=== PATIENT | male | born 1990 | race Caucasian/White ===

== ENCOUNTER 2018-02-04 16:38 | Emergency (ER) | payer OTHER ==
--- NOTE | 2018-02-04 17:16 | ER Report ---
History and Physical Time Seen By MD: 17:16 Hx. of Stated Complaint: PT PRESENTS WITH SOB INTERMITTANTLY FOR A WEEK, , PT IS NON SMOKER, NO RESP ISSUES IN PAST HPI/ROS CHIEF COMPLAINT: Shortness of breath HISTORY OF PRESENT ILLNESS: This is a 28-year-old male who presents to the emergency department for intermittent shortness of breath and chest pressure for about one week. Patient states that roughly 1 week ago he had intermittent chest pressure with some increased shortness of breath, then over the last 2 days he's had pretty constant shortness of breath. Was seen and evaluated at [facility] today, they were concerned for a DVT signs currently sent him to the ED for further evaluation. Patient has a family history of blood clots, his father had clots and heart attack. Patient denies fevers or chills. No nausea or vomiting. Otherwise healthy. The patient was also in [place] over this past weekend however his shortness of breath did start prior to his flight. REVIEW OF SYSTEMS: Constitutional: No fever, no chills. Eyes: No discharge. ENT: No sore throat. Cardiovascular: No chest pain, no palpitations. Respiratory: As above. Gastrointestinal: No abdominal pain, no vomiting. Genitourinary: No hematuria. Musculoskeletal: No back pain. Skin: No rashes. Neurological: No headache. Allergies: Coded Allergies: No Known Drug Allergies (Unverified , 02/04/18) Home Meds Active Scripts Albuterol Sulfate 90 Mcg/Act (PROAIR HFA 90 MCG/ACT) 8.5 Gm Hfa.aer.ad, 1-2 PUFF IH 3-4XD, #1 INHALER Prov:YAZMIN WILLIS UPHOLSTERY CUTTER- 02/04/18 Past Medical/Surgical History The patient has a past medical and surgical history of wisdom teeth extraction and seasonal allergies. Reviewed Nurses Notes: Yes Hx Substance Use Disorder: No Hx Alcohol Use: Yes (OCC) Constitutional Vital Sign - Last 24 Hours 02/04/18 02/04/18 02/04/18 02/04/18 16:49 16:51 17:00 17:08 Temp 98.1 Pulse 68 62 Resp 20 B/P (MAP) 150/93 (112) 150/93 138/90 (106) Pulse Ox 99 96 O2 Delivery Room Air 02/04/18 02/04/18 02/04/186/18 17:30 17:38 18:00 18:30 Pulse 56 B/P (MAP) 133/83 (100) 142/90 (107) 137/80 (99) Pulse Ox 94 02/04/18 02/04/18 02/04/18 02/04/18 18:35 19:00 19:05 19:20 Pulse 69 56 56 B/P (MAP) 142/94 (110) Pulse Ox 99 99 96 02/04/18 02/04/18 02/04/18 02/04/18 19:30 19:35 19:42 19:42 Pulse 66 56 Resp 12 B/P (MAP) 137/93 (108) Pulse Ox 94 98 O2 Delivery Room Air 02/04/18 02/04/18 02/04/18 02/04/18 19:50 19:50 20:00 20:05 Pulse 59 58 65 Resp 12 B/P (MAP) 132/81 (98) Pulse Ox 100 97 Physical Exam General Appearance: The patient is alert, has no immediate need for airway protection and no signs of toxicity. Eyes: Pupils equal and round no pallor or injection. ENT, Mouth: Mucous membranes are moist. Respiratory: There are no retractions, lungs are clear to auscultation. Cardiovascular: Regular rate and rhythm, no murmurs, clicks or rubs. Gastrointestinal: Abdomen is soft and non tender, no masses, bowel sounds normal. Neurological: Alert and oriented 4. Moving all extraneous. Following all commands. No focal neuro deficits. Skin: Warm and dry, no rashes. Musculoskeletal: Neck is supple non tender. Extremities are nontender, nonswollen and have full range of motion. DIFFERENTIAL DIAGNOSIS: After history and physical exam differential diagnosis was considered for shortness of breath including but not limited to pulmonary infectious process, COPD, asthma, pulmonary embolus and congestive heart failure. Medical Decision Making Data Points Result Diagram: 02/04/18 1800 02/04/18 1800 Laboratory Hematology Test 02/04/18 18:00 Red Blood Count 5.35 M/uL (4.00-5.60) Mean Corpuscular Volume 88.8 fL (80.0-96.0) Mean Corpuscular Hemoglobin 31.4 pg (26.0-33.0) Mean Corpuscular Hemoglobin Concent 35.3 g/dL (32.0-36.0) Red Cell Distribution Width 12.2 % (11.5-14.5) Mean Platelet Volume 6.9 fL (7.2-11.1) Neutrophils (%) (Auto) 51.9 % (39.4-72.5) Lymphocytes (%) (Auto) 35.5 % (17.6-49.6) Monocytes (%) (Auto) 11.0 % (4.1-12.4) Eosinophils (%) (Auto) 1.0 % (0.4-6.7) Basophils (%) (Auto) 0.6 % (0.3-1.4) Nucleated RBC Relative Count (auto) 0.1 /100WBC Neutrophils # (Auto) 2.1 K/uL (2.0-7.4) Lymphocytes # (Auto) 1.4 K/uL (1.3-3.6) Monocytes # (Auto) 0.4 K/uL (0.3-1.0) Eosinophils # (Auto) 0.0 K/uL (0.0-0.5) Basophils # (Auto) 0.0 K/uL (0.0-0.1) Nucleated RBC Absolute Count (auto) 0.00 K/uL D-Dimer Quantitative (PE/DVT) 2.08 ug/ml (0-0.50) Sodium Level 139 mmol/L (137-145) Potassium Level 3.9 mmol/L (3.5-5.0) Chloride Level 102 mmol/L (98-107) Carbon Dioxide Level 28 mmol/L (22-30) Blood Urea Nitrogen 17 mg/dl (9-21) Creatinine 0.90 mg/dl (0.66-1.25) Glomerular Filtration Rate Calc > 60.0 Random Glucose 92 mg/dl (75-110) Calcium Level 9.6 mg/dl (8.4-10.2) Total Bilirubin 0.5 mg/dl (0.2-1.3) Aspartate Amino Transf (AST/SGOT) 25 U/L (0-35) Alanine Aminotransferase (ALT/SGPT) 31 U/L (0-56) Alkaline Phosphatase 58 U/L (0-126) Troponin I < 0.012 ng/ml Total Protein 7.9 g/dl (6.3-8.2) Albumin 4.5 g/dl (3.5-5.0) Chemistry Test 02/04/18 18:00 White Blood Count 4.0 k/uL (4.5-11.0) Red Blood Count 5.35 M/uL (4.00-5.60) Hemoglobin 16.8 g/dL (14.0-18.0) Hematocrit 47.5 % (42.0-52.0) Mean Corpuscular Volume 88.8 fL (80.0-96.0) Mean Corpuscular Hemoglobin 31.4 pg (26.0-33.0) Mean Corpuscular Hemoglobin Concent 35.3 g/dL (32.0-36.0) Red Cell Distribution Width 12.2 % (11.5-14.5) Platelet Count 229 K/uL (150-450) Mean Platelet Volume 6.9 fL (7.2-11.1) Neutrophils (%) (Auto) 51.9 % (39.4-72.5) Lymphocytes (%) (Auto) 35.5 % (17.6-49.6) Monocytes (%) (Auto) 11.0 % (4.1-12.4) Eosinophils (%) (Auto) 1.0 % (0.4-6.7) Basophils (%) (Auto) 0.6 % (0.3-1.4) Nucleated RBC Relative Count (auto) 0.1 /100WBC Neutrophils # (Auto) 2.1 K/uL (2.0-7.4) Lymphocytes # (Auto) 1.4 K/uL (1.3-3.6) Monocytes # (Auto) 0.4 K/uL (0.3-1.0) Eosinophils # (Auto) 0.0 K/uL (0.0-0.5) Basophils # (Auto) 0.0 K/uL (0.0-0.1) Nucleated RBC Absolute Count (auto) 0.00 K/uL D-Dimer Quantitative (PE/DVT) 2.08 ug/ml (0-0.50) Glomerular Filtration Rate Calc > 60.0 Calcium Level 9.6 mg/dl (8.4-10.2) Total Bilirubin 0.5 mg/dl (0.2-1.3) Aspartate Amino Transf (AST/SGOT) 25 U/L (0-35) Alanine Aminotransferase (ALT/SGPT) 31 U/L (0-56) Alkaline Phosphatase 58 U/L (0-126) Troponin I < 0.012 ng/ml Total Protein 7.9 g/dl (6.3-8.2) Albumin 4.5 g/dl (3.5-5.0) Coagulation Test 02/04/18 18:00 D-Dimer Quantitative (PE/DVT) 2.08 ug/ml EKG/Imaging EKG Interpretation 12 lead EKG: EKG 1729. Rhythm: Sinus bradycardia, ventricular rate 52 bpm. [place]: normal QRS: normal ST segments: No ST depression or elevation identified, there are peaked T waves in V3, V4 and V5. [place] [facility] [place] [place] Puga : 1990 Visit/Account:[id number] Date of Sevice: 02/04/2018 CTA CHEST WW/O CNTR (PULM ANG) COMPARISONS: None. ADDITIONAL PERTINENT HISTORY: Shortness of breath with elevated d-dimer. TECHNIQUE: Multiple axial images are obtained from the lung apices through the upper abdomen during the IV administration of contrast material. 2-D and 3-D reformatted images were obtained off the axial source data. One of the following dose optimization techniques was utilized in the performance of this exam: Automated exposure control; adjustment of the mA and/or kV according to the patient's size; or use of an iterative reconstruction technique. Specific details can be referenced in the facility's radiology CT exam operational polic y. CONTRAST: 75mL of Isovue-370 FINDINGS: Lung parenchyma: Negative. Pleural spaces: Negative. Heart, mediastinum and masoud: Negative. Cardiopulmonary vasculature: Pulmonary arterial structures are well opacified with contrast material and demonstrate no evidence of underlying pulmonary e mboli. Central airways: Negative Thyroid, supra- clavicular, axillary regions: Negative. Surrounding soft tissues: Negative. Upper abdominal structures: Negative. Osseous structures: Negative. IMPRESSION: 1. No acute intrathoracic process. 2. Specifically no evidence of underlying pulmonary emboli. Report Dictated By: Chang Yañez MD at 02/04/2018 7:21 PM Report E-Signed By: Chang Yañez MD at 02/04/2018 7:26 PM WSN:[id number] ED Course/Re-evaluation Clinical Indication for ER IV: Hydration, IV Access ED Course The patient was admitted to room. A history and physical were obtained. Differential diagnoses were considered. An IV was started. A CBC, CMP and d- dimer were obtained. D-dimer was elevated. Patient was given a 1 L normal saline bolus. A CTA of the chest was negative for a pulmonary embolus, no infectious process. I did review these results with the patient. I did tell him I don't have a clear explanation as to why he is having his shortness of breath however could be secondary to seasonal allergies, reactive airway or a viral process. Patient was given a DuoNeb while in the emergency department, he states he did feel better after the treatment. I did send the patient home with a prescription for an albuterol inhaler. I did recommend following up with [facility] next 2 days for reevaluation as well as a discussion about a pulmonary function test. Patient expressed understanding time and was discharged home. Decision to Disposition Date: Feb 04, 2018 Decision to Disposition Time: 20:03 Depart Departure Latest Vital Signs Vital Signs Date Time Temp Pulse Resp B/P (MAP) Pulse Ox O2 Delivery O2 Flow Rate FiO2 02/04/18 20:05 65 97 02/04/18 20:00 132/81 (98) 02/04/18 19:50 12 02/04/18 19:42 Room Air 02/04/18 16:51 98.1 Impression: Primary Impression: Shortness of breath Condition: Improved Disposition: HOME OR SELF-CARE Referrals: [facility] 2 Days New Scripts Albuterol Sulfate 90 Mcg/Act (PROAIR HFA 90 MCG/ACT) 8.5 Gm Hfa.aer.ad 1-2 PUFF IH 3-4XD, #1 INHALER Prov: YAZMIN WILLIS UPHOLSTERY CUTTER-BC 02/04/18 Patient Instructions: Dyspnea (ED) Additional Instructions: The CT did no show any evidence of a blood clot in your lungs. Your lab work and EKG do not show anything concerning today. I am unsure what is causing the shortness of breath, it could be reactive airway, viral illness or seasonal allergies that are contributing to your symptoms. I would like you to follow up with [facility] in 2 days for reevaluation, I would also like for you to discuss with them the possibility of a pulmonary function test. If you would like, you can try Zyrtec or Claritin once a day for a week to see if this helps your symptoms. Drink plenty of water. Get plenty of rest. Use the albuterol inhaler as needed for shortness of breath. Return to the ED for any other concerns or worsening symptoms. YAZMIN WILLIS UPHOLSTERY CUTTER-BC Feb 04, 2018 17:16
--- NOTE | 2018-02-04 17:34 | EKG ---
[place] [facility] [place] NAME: RUBIA POSADAS : [id number] MR: [id number] V: [id number] EXAM DATE: ORDERING PHYSICIAN: YAZMNI WILLIS TECHNOLOGIST: JOSESITO Randhawa Reason : CHEST PRESSURE Blood Pressure : / mmHG Vent. Rate : 052 BPM Atrial Rate : 052 BPM P-R Int : 136 ms QRS Dur : 102 ms QT Int : 448 ms P-R-T Axes : 047 072 055 degrees QTc Int : 416 ms Sinus bradycardia Slight ST elevation diffusely - suspect early repolarization, but cannot exclude other causes No previous ECGs available Confirmed by ROSEANNA JOSHUA ([id number]) on 02/05/2018 6:06:44 AM Referred By: LAZARO Confirmed By:ROSEANNA JOSHUA
[2018-02-04 18:20] LABS: PLATELET COUNT, AUTOMATED 229 K/uL (150-450)
[2018-02-04] MEDS ORDERED: NS(*) 0.9% 1000 ML BAG 1,000 ML IV ONE (18:35)
[2018-02-04] MEDS ORDERED: IOPAMIDOL 76% 75 ML INFUS BTL 75 ML ONE (18:48)
[2018-02-04] MEDS ORDERED: NS(*) 0.9% 50 ML BAG 50 ML ONE (18:48)
--- NOTE | 2018-02-04 19:30 | RADIOLOGY IMAGING REPORT ---
FACILITY: [facility] [place] PATIENT NAME: Howard Puga : 1990 MR: [id number] V: [id number] EXAM DATE: ORDERING PHYSICIAN: YAZMIN WILLIS TECHNOLOGIST: Location: [facility] Patient: Howard Puga : 1990 Visit/Account:[id number] Date of Sevice: 02/04/2018 CTA CHEST WW/O CNTR (PULM ANG) COMPARISONS: None. ADDITIONAL PERTINENT HISTORY: Shortness of breath with elevated d-dimer. TECHNIQUE: Multiple axial images are obtained from the lung apices through the upper abdomen during t he IV administration of contrast material. 2-D and 3-D reformatted images were obtained off the axial source data. One of the following dose optimization techniques was utilized in the performance of t his exam: Automated exposure control; adjustment of the mA and/or kV according to the patient's size; or use of an iterative reconstruction technique. Specific details can be referenced in the [facility]'s radiology CT exam operational policy. CONTRAST: 75mL of Isovue-370 FINDINGS: Lung parenchyma: Negative. Pleural spaces: Negative. Heart, mediastinum and masoud: Negative. Cardiopulmonary vasculature: Pulmonary arterial structures are well opacified with contrast material and demonstrate no evidence of underlying pulmonary emboli. Central airways: Negative Thyroid, supra- clavicular, axillary regions: Negative. Surrounding soft tissues: Negative. Upper abdominal structures: Negative. Osseous structures: Negative. IMPRESSION: 1. No acute intrathoracic process. 2. Specifically no evidence of underlying pulmonary emboli. Report Dictated By: Chang Yañez MD at 02/04/2018 7:21 PM Report E-Signed By: Chang Yañez MD at 02/04/2018 7:26 PM [id number]
[2018-02-04] MEDS ORDERED: ALBUTEROL/IPRATROPIUM 3 ML NEB NEB ONE (19:35)
[2018-02-04] MEDS ORDERED: ALBU8.5H IH (19:51)
[2018-02-04 20:00] VITALS: BP 132/81
== END 2018-02-04 20:20 | disposition home or self-care (01) ==
LOC: ER 18:16
DX: R06.02 Shortness of breath (principal); R00.1 Bradycardia, unspecified
CPT/HCPCS: 84484; 85025; 85379; 93005; 94640; 96360; 99284; J7030; J7050; J7620; Q9967; 71275; 82040; 82247; 82310; 82374; 82435; 82565; 82947; 84075; 84132; 84155; 84295; 84450; 84460; 84520